=== PATIENT | male | born 1990 | race African-American/Black ===

== ENCOUNTER 2024-07-11 04:29 | Emergency (ER) | payer OTHER ==
[2024-07-11 04:42] VITALS: RESP 16; TEMP 98.5; BMI 27.8
[2024-07-11] MEDS ORDERED: ACETAMINOPHEN INJECTION 100 ML ONE (05:33)
[2024-07-11] MEDS ORDERED: FAMOTIDINE 20 MG/50 ML IVPB 20 MG/50 ML MG IVPB ONE (05:33)
[2024-07-11] MEDS: ACETAMINOPHEN 1000 MG/100 ML BAG IVPB ONE (05:45)
[2024-07-11] MEDS: FAMOTIDINE 20 MG/50 ML IVPB 20 MG/50 ML MG IVPB ONE (05:50)
[2024-07-11 06:11] LABS: BASO % 0.5 % (0-2.0); HEMATOCRIT 45.9 % (35.4-49); HEMOGLOBIN 14.9 GM/dL (11.7-16.9); MCH 27.2 pg (25.7-33.7); MCHC 32.5 g/dl (32.0-35.9); MEAN CELL VOLUME 83.4 fl (80-96); MEAN PLT VOLUME 7.5 fl (7.5-11.1); MONO % 7.1 % (3.8-10.2); NEUT % 69.4 % (42.8-82.8); PLATELET COUNT 245 10^3/uL (134-434); RDW 14.5 % (11.9-15.9); WHITE BLOOD COUNT 6.2 K/mm3 (4.0-10.0)
[2024-07-11 06:23] LABS: INR 1.04 (0.83-1.09); PROTHROMBIN TIME (PATIENT) 11.9 SEC (9.7-13.0)
[2024-07-11 06:25] LABS: ACTIVATED PTT 32.8 SECONDS (25.2-36.5)
[2024-07-11 06:31] LABS: POTASSIUM 3.9 mmol/L (3.5-5.1)
[2024-07-11 06:33] LABS: ALBUMIN 3.7 g/dl (3.4-5.0); BLOOD UREA NITROGEN 15.4 mg/dL (7-18); CALCIUM 9.3 mg/dL (8.5-10.1)
[2024-07-11 06:36] LABS: CREATININE 1.4 mg/dL (0.55-1.3)
[2024-07-11 06:38] LABS: BILIRUBIN,TOTAL 0.3 mg/dL (0.2-1); TOT PROT 7.6 g/dl (6.4-8.2)
[2024-07-11 09:15] LABS: URINE APPEARANCE CLEAR; URINE BILIRUBIN NEGATIVE (NEGATIVE); URINE COLOR YELLOW; URINE GLUCOSE (UA) NEGATIVE (NEGATIVE); URINE KETONE NEGATIVE (NEGATIVE); URINE LEUK ESTERASE NEGATIVE (NEGATIVE); URINE NITRITE NEGATIVE (NEGATIVE); URINE PROTEIN NEGATIVE (NEGATIVE); URINE UROBILINOGEN 0.2 mg/dL (0.2-1.0)
[2024-07-11 09:31] VITALS: BP 132/92; PULSE 71
[2024-07-11 13:34] LABS: HIV INTERPRETATION NEGATIVE (NEGATIVE)
== END 2024-07-11 10:19 | disposition home or self-care (01) ==
LOC: JER 04:29
PROC: 3E033GC Introduction of Other Therapeutic Substance into Peripheral Vein, Percutaneous Approach (ICD-10-PCS; principal; 2024-07-11)
PROC: 3E033NZ Introduction of Analgesics, Hypnotics, Sedatives into Peripheral Vein, Percutaneous Approach (ICD-10-PCS; 2024-07-11)
DX: R10.11 Right upper quadrant pain (principal); R12 Heartburn; R11.0 Nausea
CPT/HCPCS: 36415; 74177-TC; 76700-TC; 80053; 81003; 83690; 84484; 85025; 85610; 85730; 86803; 86850; 86900; 86901; 87086; 87389; 93005; 93010; 99285-25; J0131; Q9967